=== PATIENT | female | born 1990 | race Caucasian/White ===

== ENCOUNTER 2017-10-02 15:09 | Emergency (ER) | payer BC ==
[~2017-10-02] VITALS: Ht 167.6 cm; Wt 145.0 kg
[2017-10-02 15:14] VITALS: BP 132/75; PULSE 95; TEMP 98.4; O2SAT 98
[2017-10-02] MEDS ORDERED: KETOROLAC TROMETHAMINE 60 MG/2 ML (IM) VIAL IM ONE (16:45)
[2017-10-02] MEDS ORDERED: PROCHLORPERAZINE INJ 10 MG/2 ML VIAL IM ONE (16:45)
[2017-10-02] MEDS ORDERED: diphenhydrAMINE HCL 50 MG/ML VIAL IV PUSH ONE (16:45)
[2017-10-02] MEDS ORDERED: MEDI220T PO (17:00)
--- NOTE | 2017-10-02 17:01 | PD ---
HPI . Headache Chief Complaint: Lump, Cyst, Hernia Time Seen by Provider: 15:59 Travel History International Travel<30 days: No Contact w/Intl Traveler<30days: No Traveled to known affect area: No History of Present Illness HPI 26-year-old female presents emergency department for evaluation of headache. Patient reports that she deals with headaches daily but feels like this one is a little worse than normal. Patient has a hard lump on the right aspect of the frontal skull that she has had for approximately 8-10 years now. Patient states she has talked her primary care physician about it but it has not gone anywhere. Patient believes the hard lump is causing her headaches. The patient reports that this headache has been constant for 2 days. She reports that there is nothing that increases or decreases this severity. The headache is generalized throughout the head and throbbing in nature. Patient's only major medical history is depression. She denies any fevers, chills, malaise. Patient has a shortness breath, chest pain, cough. She denies any abdominal pain, nausea, vomiting, diarrhea. PFSH Past Medical History ?: Not LMP: 08/2017 Social History Alcohol Use: No Tobacco Use: No Substance Use: No Allergies-Medications (Allergen,Severity, Reaction): Coded Allergies: No Known Allergies (Unverified , 10/02/17) Reported Meds & Prescriptions Reported Meds & Active Scripts Active Naproxen Sodium 220 Mg Tab 440 Mg PO BID PRN Review of Systems Except as stated in HPI: all other systems reviewed are Neg Physical Exam Narrative GENERAL: Well-nourished, well-developed 26-year-old female patient in no acute distress. Resting comfortably on stretcher, playing with phone in speaking with her who is in the room. SKIN: Focused skin assessment warm/dry. HEAD: Normocephalic. Atraumatic. NEUROLOGICAL: Awake and alert. Cranial nerves II through XII intact. Motor and sensory grossly within normal limits. Five out of 5 muscle strength in all muscle groups. Normal speech. EYES: Nelly demonstrated bilaterally. No scleral icterus. No injection or drainage. NECK: Supple, trachea midline. No JVD or lymphadenopathy. CARDIOVASCULAR: Regular rate and rhythm without murmurs, gallops, or rubs. RESPIRATORY: Breath sounds equal bilaterally. No accessory muscle use. GASTROINTESTINAL: Abdomen soft, non-tender, nondistended. MUSCULOSKELETAL: No cyanosis, or edema. Data Data Last Documented VS Vital Signs Date Time Temp Pulse Resp B/P (MAP) Pulse Ox O2 Delivery O2 Flow Rate FiO2 10/02/17 17:09 10/02/17 15:14 98.4 95 98 Orders Orders Ketorolac Inj (Toradol Inj) (10/02/17 16:45) Diphenhydramine Inj (Benadryl Inj) (10/02/17 16:45) Prochlorperazine Inj (Compazine Inj) (10/02/17 16:45) Ed Discharge Order (10/02/17 17:01) [facility] Medical Decision Making Medical Screen Exam Complete: Yes Emergency Medical Condition: Yes Differential Diagnosis Differential diagnoses include but not limited to migraine headache, tension headache, sinus congestion, migraine Narrative Course Well-nourished well-developed well-appearing 26-year-old female patient in no acute distress, resting comfortably on the stretcher playing with her phone and talking with her presents emergency department for evaluation of headache that has been 2 days in duration. Patient states she suffers from headaches daily but feels like this was a little worse than normal. Patient associates a hard lump on the right side of her skull she has had for approximate 8 to 10 years with these headaches. Patient's states she has spoken to her primary care about getting it evaluated but it hasn't been evaluated yet. Patient is neurologically intact. There is no traumas, falls, injuries associated with this headache. Skull is atraumatic outside the lump that she reports having for 8-10 years. Patient is on the clinical presentation , physical exam, symptoms duration I do not believe is necessary at this time to obtain radiological imaging. Patient will be treated symptomatically for her headache with IM injection of Toradol, Benadryl and Compazine. And reassessed. Patient was reassessed and reports symptoms are improving and she is feeling better. Patient will be discharged home with instructions to follow up with her primary care regarding the lump on the right side of her head. Diagnosis Primary Impression: Headache Qualified Codes: R51 - Headache Referrals: Primary Care Physician Patient Instructions: Acute Headache (ED), General Instructions Additional Instructions: Please return to emergency department if your symptoms return or worsen. Follow up with your primary care provider. Take medications as prescribed. Med/Other Pt SpecificInfo: Prescription(s) given Scripts Naproxen Sodium (Naproxen Sodium) 220 Mg Tab 440 MG PO BID Y for Pain Management, #12 TAB 0 Refills Prov: Francine Juan 10/02/17 Disposition: 01 DISCHARGE HOME Condition: Stable Francine Juan Oct 02, 2017 17:01
== END 2017-10-02 17:16 | disposition home or self-care (01) ==
LOC: NEPK 15:09
DX: R51 Headache (principal); R22.0 Localized swelling, mass and lump, head; Z86.59 Personal history of other mental and behavioral disorders
CPT/HCPCS: 96372; 96374; 99284; J0780; J1200; J1885

== ENCOUNTER 2018-04-01 09:25 | Emergency (ER) | payer SELFPAY ==
[~2018-04-01] VITALS: Ht 167.6 cm; Wt 140.0 kg
[~2018-04-01 09:25] MED LIST: MEDI220T PO
[2018-04-01 09:27] VITALS: BP 118/75; PULSE 76; RESP 18; TEMP 98.3; O2SAT 100
--- NOTE | 2018-04-01 10:00 | PD ---
HPI Chief Complaint: ENT Complaint Time Seen by Provider: 09:40 Travel History International Travel<30 days: No Contact w/Intl Traveler<30days: No Traveled to known affect area: No History of Present Illness HPI 27-year-old female presents emergency department with pain and swelling to the posterior pharynx that she woke up with this morning. Patient states no fever, chills, difficulty swallowing, or breathing. Patient also questions possible with a little bit of vaginal bleeding this morning. Patient states her last menstrual period ended Friday, is now Friday. Patient denies abdominal pain or cramping. No nausea, no vomiting, no heartburn. Patient has no known drug allergies. PFSH Past Medical History Medical History: Denies Significant Hx Tetanus Vaccination: Unknown Influenza Vaccination: No ?: Past Surgical History Other Surgery: Yes (tubes in ears) Social History Alcohol Use: No Tobacco Use: No Substance Use: No Allergies-Medications (Allergen,Severity, Reaction): Coded Allergies: No Known Allergies (Unverified , 04/01/18) Reported Meds & Prescriptions Reported Meds & Active Scripts Active No Active Prescriptions or Reported Medications Review of Systems Except as stated in HPI: all other systems reviewed are Neg General / Constitutional: No: Fever, Chills Eyes: No: Visual changes HENT: Positive: Sore Throat, No: Headaches, Rhinitis, Rhinorrhea, Congestion, Nosebleed, Neck Stiffness, Neck Pain, Masses, Dental Difficulties, Earache Cardiovascular: No: Chest Pain or Discomfort Respiratory: No: Cough, Shortness of Breath Gastrointestinal: No: Nausea, Vomiting, Diarrhea, Abdominal Pain Genitourinary: Positive: Vaginal Bleeding (Spotting this morning.), No: Urgency , Frequency, Dysuria Musculoskeletal: No: Pain Skin: No Rash Neurologic: No: Weakness Psychiatric: No: Depression Endocrine: No: Polydipsia Hematologic/Lymphatic: No: Easy Bruising Physical Exam Narrative GENERAL: Moderately obese female in no acute distress per SKIN: Warm and dry. Normal color. Normal turgor. No rash HEAD: Atraumatic. Normocephalic. EYES: Pupils equal and round. No scleral icterus. No injection or drainage. ENT: No nasal bleeding or discharge. Mucous membranes pink and moist. TMs are clear bilaterally. No sinus tenderness to palpation bilaterally. Posterior pharynx shows a couple of viral type lesions on the uvula without significant swelling. The rest of the pharynx appears normal. No significant tonsillar swelling or exudate noted. No postnasal drip. NECK: Trachea midline. Supple nontender. CARDIOVASCULAR: Regular rate and rhythm. RESPIRATORY: No accessory muscle use. Clear to auscultation. Breath sounds equal bilaterally. GASTROINTESTINAL: Abdomen soft, non-tender, nondistended. Hepatic and splenic margins not palpable. MUSCULOSKELETAL: Extremities without clubbing, cyanosis, or edema. No obvious deformities. NEUROLOGICAL: Awake and alert. No obvious cranial nerve deficits. Motor grossly within normal limits. Five out of 5 muscle strength in the arms and legs. Normal speech. PSYCHIATRIC: Appropriate mood and affect; insight and judgment normal. Data Data Last Documented VS Vital Signs Date Time Temp Pulse Resp B/P (MAP) Pulse Ox O2 Delivery O2 Flow Rate FiO2 04/01/18 09:27 98.3 76 18 118/75 (89) 100 Orders Orders Beta Hcg (Quant/Titer) (04/01/18 09:40) Complete Blood Count With Diff (04/01/18 09:40) Comprehensive Metabolic Panel (04/01/18 09:40) Ed Urine Pregnancytest Poc (04/01/18 09:40) Labs Laboratory Tests Test 04/01/18 09:50 White Blood Count 5.4 TH/MM3 Red Blood Count 4.63 MIL/MM3 Hemoglobin 11.8 GM/DL Hematocrit 35.7 % Mean Corpuscular Volume 77.0 FL Mean Corpuscular Hemoglobin 25.4 PG Mean Corpuscular Hemoglobin Concent 33.0 % Red Cell Distribution Width 14.6 % Platelet Count 233 TH/MM3 Mean Platelet Volume 9.3 FL Neutrophils (%) (Auto) 56.3 % Lymphocytes (%) (Auto) 33.9 % Monocytes (%) (Auto) 7.8 % Eosinophils (%) (Auto) 1.2 % Basophils (%) (Auto) 0.8 % Neutrophils # (Auto) 3.1 TH/MM3 Lymphocytes # (Auto) 1.8 TH/MM3 Monocytes # (Auto) 0.4 TH/MM3 Eosinophils # (Auto) 0.1 TH/MM3 Basophils # (Auto) 0.0 TH/MM3 CBC Comment DIFF FINAL Differential Comment Blood Urea Nitrogen 10 MG/DL Creatinine 0.84 MG/DL Random Glucose 119 MG/DL Total Protein 7.0 GM/DL Albumin 3.2 GM/DL Calcium Level 8.5 MG/DL Alkaline Phosphatase 57 U/L Aspartate Amino Transf (AST/SGOT) 12 U/L Alanine Aminotransferase (ALT/SGPT) 22 U/L Total Bilirubin 0.4 MG/DL Sodium Level 139 MEQ/L Potassium Level 3.6 MEQ/L Chloride Level 106 MEQ/L Carbon Dioxide Level 29.0 MEQ/L Anion Gap 4 MEQ/L Estimat Glomerular Filtration Rate 83 ML/MIN Human Chorionic Gonadotropin, Quant LESS THAN 1 MIU/ML MDM Medical Decision Making Medical Screen Exam Complete: Yes Emergency Medical Condition: Yes Differential Diagnosis Viral syndrome. Uvulitis. Possible early . Spotting. Narrative Course Patient is medically stable at time of exam. Labs ordered including CBC, CMP, urinalysis, urine , serum hCG. test here are negative with a serum hCG of 1 Labs are otherwise normal. Patient is to go home with Tylenol, ice chips, and Magic mouthwash as needed for her sore throat. Patient should follow-up with her primary care physician or return if symptoms worsen as needed. Diagnosis Primary Impression: Uvulitis Additional Impression: Viral syndrome Referrals: Primary Care Physician Patient Instructions: General Instructions, Uvulitis (ED) Additional Instructions: test here are negative with a serum hCG of 1 Labs are otherwise normal. Patient is to go home with Tylenol, ice chips, and Magic mouthwash as needed for her sore throat. Patient should follow-up with her primary care physician or return if symptoms worsen as needed. Med/Other Pt SpecificInfo: Prescription(s) given Scripts No Active Prescriptions or Reported Meds Disposition: 01 DISCHARGE HOME Condition: Stable Matthew Sharp April 01, 2018 10:00
[2018-04-01 10:04] LABS: AUTOMATED NEUTROPHIL # 3.1 TH/MM3 (1.8-7.7); BASOPHIL % 0.8 % (0.0-2.0); EOSINOPHIL # 0.1 TH/MM3 (0-0.4); EOSINOPHIL % 1.2 % (0.0-4.0); HEMATOCRIT 35.7 % (35.0-46.0); HEMOGLOBIN 11.8 GM/DL (11.6-15.3); LYMPH % 33.9 % (9.0-44.0); LYMPHOCYTE # 1.8 TH/MM3 (1.0-4.8); MEAN CORPUSCULAR HEMOGLOBIN 25.4 PG (27.0-34.0); MEAN PLATELET VOLUME 9.3 FL (7.0-11.0); MONO % 7.8 % (0.0-8.0); MONOCYTE # 0.4 TH/MM3 (0-0.9); NEUT % 56.3 % (16.0-70.0); PLATELET COUNT 233 TH/MM3 (150-450); RED BLOOD COUNT 4.63 MIL/MM3 (4.00-5.30); RED CELL DISTRIBUTION WIDTH 14.6 % (11.6-17.2); WHITE BLOOD COUNT 5.4 TH/MM3 (4.0-11.0)
[2018-04-01 10:24] LABS: ALBUMIN 3.2 GM/DL (3.4-5.0); ALT (GPT) 22 U/L (10-53); AST (GOT) 12 U/L (15-37); BLOOD UREA NITROGEN 10 MG/DL (7-18); CALCIUM 8.5 MG/DL (8.5-10.1); CHLORIDE 106 MEQ/L (98-107); CREATININE 0.84 MG/DL (0.50-1.00); GLOMERULAR FILTRATION RATE 83 ML/MIN (>89); GLUCOSE,RANDOM 119 MG/DL (74-106); SODIUM (NA) 139 MEQ/L (136-145)
[2018-04-01 10:26] LABS: ALKALINE PHOSPHATASE 57 U/L (45-117); TOTAL BILIRUBIN ADULT 0.4 MG/DL (0.2-1.0)
[2018-04-01] MEDS ORDERED: MAGICADU2 SWISH-SPIT (11:16)
[2018-04-01] MEDS ORDERED: IBUP-232 PO (11:16)
== END 2018-04-01 11:24 | disposition home or self-care (01) ==
LOC: NEPD 09:25
DX: K12.2 Cellulitis and abscess of mouth (principal); B34.9 Viral infection, unspecified; N93.9 Abnormal uterine and vaginal bleeding, unspecified
CPT/HCPCS: 80053; 84702; 84703; 85025; 99283